=== PATIENT | male | born 1955 | race Caucasian/White ===

== ENCOUNTER 2016-09-25 11:53 | Emergency (ER) | payer OTHER ==
[~2016-09-25] VITALS: Ht 185.4 cm; Wt 100.9 kg
[~2016-09-25 11:53] MED LIST: HYDR-3702 PO; MTP25TSR PO
--- OUTSIDE RECORDS SUMMARY | 2016-09-25 12:02 | XMS REPORT | Summary of Care ---
Author Author Rea Rocha, [employer] Organization Unknown Address [address] [place], [place] [id number] Phone Unavailable Care Team Providers Care Ict Development Manager Name Role Phone Jose Rocha, Rinku Unavailable Unavailable Kalen Dougherty PP Unavailable Unavailable Unavailable Functional Status Functional Status Health Issues Name Dates Details Functional status health issues are not documented Status: Cognitive Status Health Issues Name Dates Details Cognitive status health issues are not documented Status: Problems Name Dates Details Essential and other specified forms of tremor (333.1, R25.1) Status: Active Atypical chest pain (786.59, R07.89) Status: Active Chronic tension-type headache (339.12, G44.229) Status: Active Shortness of breath (786.05, R06.02) Status: Active Cervicalgia (723.1, M54.2) Status: Active Back pain (724.5, M54.9) Status: Active Hip pain (719.45, M25.559) Status: Active Low back pain (724.2, M54.5) Status: Active Sacroiliitis (720.2, M46.1) Status: Active Hypertension (401.9, I10) Status: Active Osteoarthritis of knee (715.96, M17.9) Status: Active Knee swelling (719.06, M25.469) Status: Active Depression (311, F32.9) Status: Active Medications Name Dates Details Toprol XL 25 MG Oral Tablet Extended Release 24 Hour TAKE 1 TABLET DAILY. Quantity: 30 Refills: 0 Rinku Garcia M.D. Started 04-Aug-2010 ActiveLexapro 10 MG Oral Tablet TAKE 1 TABLET DAILY. Quantity: 30 Refills: 0 Rinku Garcia M.D. Started 04-Aug-2010 ActiveNorco 7.5-325 MG Oral Tablet TAKE 1 TABLET EVERY 4 TO 6 HOURS NEEDED FOR PAIN. Refills: 0 Started 10-Jul-2014 Active Allergies and Adverse Reactions Name Dates Details Advil CAPS Status: Active Past Medical History Name Dates Details History of dizziness (V13.89, Z87.898) Status: Resolved History of head injury (V15.59, Z87.828) Status: Resolved History of headache (V13.89, Z87.898) Status: Resolved History of Neck stiffness (723.5, M43.6) Status: Resolved History of Tingling (782.0, R20.2) Status: Resolved History of tinnitus (V12.49, Z86.69) Status: Resolved History of Visual impairment (369.9, H54.7) Status: Resolved Procedures Procedure Dates Details History of Neck Surgery History of Hip Surgery XRay SPINE-CERVICAL Ordered:10-Jul-2014 Immunization Name Dates Details Immunizations not documented Family History natural daughter Name Dates Details Family history of Tremor (On Exam) Status: Active natural son Name Dates Details Family history of Tremor (On Exam) Status: Active Father Name Dates Details Family history of Cancer Status: Active Social History Name Dates Details Smoking StatusCurrent every day smoker Vital Signs Date Test Result Details 17-Jul-2014 07:51 BP Systolic 150 mm[Hg] Status: BP Diastolic 80 mm[Hg] Status: Heart Rate 80 /min Status: 10-Jul-2014 09:31 BP Systolic 154 mm[Hg] Status: BP Diastolic 84 mm[Hg] Status: Heart Rate 76 /min Status: Weight 214 lb Status: Body Mass Index Calculated 28.23 kg/m2 Status: Body Surface Area Calculated 2.21 m2 Status: Results Date Description Value Details 10-Jul-2014 12:11 Xray SPINE CERVICAL (2 Views Only) Comments: Exam Date: 10:24Dictation Date: 12:11 X SPINE CERVICAL (2V) (Better) 12:12 XRay SPINE-THORACIC Comments: Exam Date: 10:24Dictation Date: 12:12 X SPINE THORACIC (2V) (Better) 12:12 Xray Spine Lumbar (2 Views Only) Comments: Exam Date: 10: 25Dictation Date: 12:12 X SPINE L-S (2V) (Better) 12:13 XRay SI JOINTS Comments: Exam Date: 10:27Dictation Date: 12:13 X SI JOINTS (MIN 3V) (Better) 11:04 SI JOINT INJECTION RIGHT Comments: Exam Date: 10: 28Dictation Date: 11:04 XF SI JOINT INJECTION RIGHT (Better) 14:26 Xray PELVIS (AP ONLY) Comments: Exam Date: 10:26Dictation Date: 14:26 X PELVIS (AP ONLY) (Better) 15-Jul-2014 14:07 HLA B 27 [facility] [id number] Comments: TESTING PERFORMED AT: [2Q] [facility], [address] [place] [address], [id number], PHONE: [phone], CAREER DEVELOPMENT ENGINEER: NICOLE YOUSIF, PHD HLA-B27 NEGATIVE (Better) Comments: HLA-B*27 NEGATIVEA LAB CLIA ID NUMBER [id number] TEST WAS PERFORMED USING PCR (POLYMERASE CHAINREACTION)/ SSOP (SEQUENCE SPECIFIC OLIGONUCLEOTIDE PROBES)TECHNIQUE. SBT (SEQUENCE BASED TYPING) AND/OR SSP(SEQUENCE SPECIFIC PRIMERS) MAY BE USED SUPPLEMENTALMETHODS WHEN NECESSARY. PLEASE CONTACT HLA CUSTOMERS[facility] AT [phone] IF YOU HAVE ANY QUESTIONS. DIRECTOR OF HLA LABORATORY DR NICOLE YOUSIF , PHD----- Plan of Care Planned Observations Name Dates Details Planned Goals not documented Goal Instructions Instructions not documented Encounters Appointment; Alex Lucia Encounter Diagnosis: Problem not documented On 17-Jul-2014 08:15 Appointment; Alex Lucia Encounter Diagnosis: Problem not documented On 10-Jul-2014 09:45
[2016-09-25] MEDS ORDERED: LIDOCAINE 1% (XYLOCAINE) 20 ML VIAL INJ ONE (12:30)
--- NOTE | 2016-09-25 12:32 | NUR ---
in suturing pt
[2016-09-25 12:51] VITALS: BP 158/74
== END 2016-09-25 12:45 | disposition home or self-care (01) ==
LOC: EDUNIT# 11:53 → ED 11:58
DX: S01.81XA Laceration without foreign body of other part of head, initial encounter (principal); W22.8XXA Striking against or struck by other objects, initial encounter; Y93.89 Activity, other specified; Y92.63 Factory as the place of occurrence of the external cause; Y99.0 Civilian activity done for income or pay
CPT/HCPCS: 12001; 12011; 99282; 99283

== ENCOUNTER → 2016-09-27 | Outpatient (REF) | payer BC ==
[2016-09-27 11:41] LABS: BILIRUBIN,URINE Negative (Negative); CLARITY,URINE Clear; COLOR,URINE Yellow; GLUCOSE, URINE (UA) Negative (Negative); LEUKOCYTE ESTERASE ,URINE Negative (Negative); UROBILINOGEN,URINE 0.2 mg/dL (0.2-1.0)
[2016-09-27 11:43] LABS: MEAN CORPUSCULAR HEMOGLOBIN 28.7 PG (26.0-34.0); MEAN CORPUSCULAR HGB CONC 32.6 g/dL (31.0-37.0); MEAN CORPUSCULAR VOLUME 88 FL (80-100); MEAN PLATELET VOLUME 10.5 FL (6.0-9.5); PLATELET COUNT 270 10^3uL (150-450); WHITE BLOOD COUNT 9.94 10^3uL (4.0-11.0)
[2016-09-27 11:45] LABS: BASOPHILS % (AUTO) 0 % (0-2); EOSINOPHILS # (AUTO) 0.2 10^3uL; EOSINOPHILS % (AUTO) 2 % (0-4); LYMPHOCYTES # (AUTO) 1.6 X10^3; MONOCYTES # (AUTO) 0.7 X10^3; MONOCYTES % (AUTO) 7 % (3-11); NEUTROPHILS # (AUTO) 7.4 X10^3; NEUTROPHILS % (AUTO) 74 % (51-67)
[2016-09-27 12:10] LABS: ALBUMIN 4.2 g/dL (3.4-5.0); ANION GAP 13.5 MEQ/L (3-15); CALCULATED IONIZED CALCIUM 4.2 mg/dL (3.8-4.6); TOTAL PROTEIN 7.2 g/dL (6.4-8.5)
== END ==
LOC: LAB 10:54
PROVIDERS: ATTEND Family Medicine
DX: I10 Essential (primary) hypertension (principal); G25.0 Essential tremor; R53.83 Other fatigue; F34.1 Dysthymic disorder
CPT/HCPCS: 80053; 81003; 83718; 84153; 84403; 84443; 85025